=== PATIENT | male | born 1990 | race Caucasian/White ===

== ENCOUNTER 2018-06-10 21:06 | Emergency (ER) | payer OTHER ==
[~2018-06-10] VITALS: Ht 182.9 cm; Wt 86.2 kg
[~2018-06-10 21:06] MED LIST: NOHOMEMEDS
[2018-06-10 21:38] LABS: HEMATOCRIT 40.6 % (38.0-50.0); HEMOGLOBIN 14.5 G/DL (12.5-16.6); MCH 32.2 PG (29.0-34.0); MCHC 35.7 G/DL (30.0-36.0); MCV 90.2 FL (86-99); PLATELET COUNT 254 K/uL (156-360); RBC DIS.WIDTH-CV 12.3 % (11.8-14.6); RBC DIS.WIDTH-SD 40.9 % (39-53)
[2018-06-10 21:50] LABS: CHLORIDE 105 mEq/L (99-109); POTASSIUM 4.5 mEq/L (3.7-5.4); SODIUM 140 mEq/L (136-147)
[2018-06-10 21:51] LABS: GLUCOSE 109 mg/dL (70-99)
[2018-06-10 21:55] LABS: GFR ESTIMATE (CALCULATED) > 59 mL/min/ (58.99-99999)
[2018-06-10 21:56] LABS: UREA NITROGEN (BUN) 10 mg/dL (9-23)
[2018-06-10 21:59] LABS: TROP-I INTERPRETATION NEGATIVE; TROPONIN-I < 0.01 ng/mL (0.0-0.30)
[2018-06-11 00:38] LABS: TROP-I INTERPRETATION NEGATIVE; TROPONIN-I < 0.01 ng/mL (0.0-0.30)
[2018-06-11 01:07] VITALS: BP 112/69
== END 2018-06-11 01:08 | disposition home or self-care (01) ==
LOC: EME 21:06
PROVIDERS: Nurse Practitioner Family
DX: R07.89 Other chest pain (principal); Z86.59 Personal history of other mental and behavioral disorders; R42 Dizziness and giddiness; R11.10 Vomiting, unspecified; R00.1 Bradycardia, unspecified
CPT/HCPCS: 71046; 80048; 84484; 85027; 93005; 99281; 99283